=== PATIENT | female | born 1965 | race Caucasian/White ===

== ENCOUNTER 2020-08-06 08:02 | Inpatient (IN) | payer OTHER ==
[~2020-08-06] VITALS: Ht 170.2 cm; Wt 91.2 kg
[~2020-08-06 08:02] MED LIST: CEFUROXIME500 MG PO; HYDROCODON-ACE1 EAC4 PO; ZOFRAN4 MG PO
[2020-08-06 08:32] LABS: HEMOGLOBIN 14.7 gm/dl (12.3-15.3); RED BLOOD COUNT 4.81 M/UL (4.00-5.10); WHITE BLOOD COUNT 12.7 K/UL (4.5-11.0)
[2020-08-06 13:14] LABS: BUN/CREATININE RATIO 22 (0-10)
[2020-08-06] MEDS ORDERED: NADOLOL20 MG PO (16:31)
[2020-08-06] MEDS ORDERED: DOXEPIN HCL100 MG PO (16:33)
[2020-08-06] MEDS ORDERED: TRAMADOL HCL50 MG PO (16:35)
[2020-08-06] MEDS ORDERED: TIZANIDINE HCL4 MG PO (16:37)
[2020-08-06] MEDS ORDERED: PAROXETINE HCL30 MG PO (16:39)
[2020-08-06] MEDS ORDERED: HYDROXYZINE HCL25 MG PO (16:43)
[2020-08-07 05:38] LABS: HEMOGLOBIN 13.2 gm/dl (12.3-15.3); RED BLOOD COUNT 4.33 M/UL (4.00-5.10)
[2020-08-07 05:39] LABS: WHITE BLOOD COUNT 7.8 K/UL (4.5-11.0)
[2020-08-07 06:34] LABS: BUN/CREATININE RATIO 26 (0-10)
--- NOTE | 2020-08-07 21:41 | NUR ---
Updated pt daughter, Farida, via phone. all questions answered.
[2020-08-08 05:08] LABS: HEMOGLOBIN 14.1 gm/dl (12.3-15.3); RED BLOOD COUNT 4.66 M/UL (4.00-5.10)
[2020-08-08 05:36] LABS: BUN/CREATININE RATIO 25 (0-10)
[2020-08-08 05:53] LABS: WHITE BLOOD COUNT 3.6 K/UL (4.5-11.0)
[2020-08-09 03:14] LABS: HEMOGLOBIN 14.5 gm/dl (12.3-15.3); RED BLOOD COUNT 4.79 M/UL (4.00-5.10)
[2020-08-09 03:16] LABS: WHITE BLOOD COUNT 6.2 K/UL (4.5-11.0)
[2020-08-09 03:50] LABS: BUN/CREATININE RATIO 37 (0-10)
[2020-08-10 16:15] LABS: ORGANISM ID Not indicated. (.); SPECIMEN SOURCE Urine (.); STREPTOCOCCUS PNEUMONIAE AG Negative (Negative)
== END 2020-08-09 16:53 | disposition home or self-care (01) | DRG 917 ==
LOC: ER1 08:02 → CDU 12:21 → PROG CARE 12:21 → CCU 12:21 → MED SURG 4 14:33 → CCU 15:59 → PROG CARE 08-08 14:45
PROVIDERS: Internal Medicine Pulmonary Disease; Physician Assistant; ADMIT Internal Medicine Infectious Disease
PROC: 8E0ZXY6 Isolation (ICD-10-PCS; principal; 2020-08-06)
DX: T40.421A Poisoning by tramadol, accidental (unintentional), initial encounter (principal); U07.1 COVID-19; G92 Toxic encephalopathy; J96.01 Acute respiratory failure with hypoxia; J96.02 Acute respiratory failure with hypercapnia; N17.9 Acute kidney failure, unspecified; E11.649 Type 2 diabetes mellitus with hypoglycemia without coma; E87.5 Hyperkalemia; F31.9 Bipolar disorder, unspecified; K74.60 Unspecified cirrhosis of liver; E11.42 Type 2 diabetes mellitus with diabetic polyneuropathy; E86.0 Dehydration; G89.4 Chronic pain syndrome; T40.2X1A Poisoning by other opioids, accidental (unintentional), initial encounter; R74.01 Elevation of levels of liver transaminase levels; K75.81 Nonalcoholic steatohepatitis (NASH); Z90.710 Acquired absence of both cervix and uterus; Y92.89 Other specified places as the place of occurrence of the external cause; Z79.4 Long term (current) use of insulin
CPT/HCPCS: ECHO; 0240U; 36415; 36600; 70450; 71045; 71275; 80048; 80053; 80076; 80307; 81001; 82140; 82550; 82553; 82728; 82803; 82962; 83036; 83605; 83615; 83735; 83874; 83880; 84100; 84443; 84484; 85025; 85379; 85384; 85610; 85730; 86140; 87081; 87278; 87899; 93306; 93970; 94640; 94660; 94664; 94760; 96374; 96375; 99285; C9113; G0480; J0610; J1100; J1650; J2310; J2543; Q9967; U0003

== ENCOUNTER → 2021-04-03 | Outpatient (CLI) | payer OTHER ==
[~2021-04-03] MED LIST changes: +DOXEPIN HCL100 MG PO; +HYDROXYZINE HCL25 MG PO; +NADOLOL20 MG PO; +PAROXETINE HCL30 MG PO; +TIZANIDINE HCL4 MG PO; +TRAMADOL HCL50 MG PO
== END ==
LOC: KOH-I 11:11
DX: R05.9 Cough, unspecified (principal); R91.8 Other nonspecific abnormal finding of lung field
CPT/HCPCS: 71046

== ENCOUNTER 2021-06-25 12:51 | Emergency (ER) | payer OTHER ==
[2021-06-25] MEDS ORDERED: CYCLOBENZAPRINE10 MG PO (15:58)
[2021-06-25] MEDS ORDERED: IBUPROFEN600 MG PO (15:59)
== END 2021-06-25 17:00 | disposition home or self-care (01) ==
LOC: ER1 12:51
DX: M54.50 Low back pain, unspecified (principal); M25.552 Pain in left hip; E11.9 Type 2 diabetes mellitus without complications; I10 Essential (primary) hypertension; Z88.6 Allergy status to analgesic agent; W06.XXXA Fall from bed, initial encounter; Y92.009 Unspecified place in unspecified non-institutional (private) residence as the place of occurrence of the external cause
CPT/HCPCS: 72131; 72192; 73502; 99284

== ENCOUNTER → 2021-09-08 | Outpatient (CLI) | payer OTHER ==
[~2021-09-08] MED LIST changes: +CYCLOBENZAPRINE10 MG PO; +IBUPROFEN600 MG PO
== END ==
LOC: LAB 13:21
DX: M79.7 Fibromyalgia (principal); K75.81 Nonalcoholic steatohepatitis (NASH); R11.0 Nausea; Z76.0 Encounter for issue of repeat prescription
CPT/HCPCS: 36415; 82140

== ENCOUNTER 2021-09-15 21:25 | Emergency (ER) | payer OTHER ==
[2021-09-16 00:19] LABS: HEMOGLOBIN 15.6 gm/dl (12.3-15.3); RED BLOOD COUNT 5.05 M/UL (4.00-5.10); WHITE BLOOD COUNT 10.4 K/UL (4.5-11.0)
[2021-09-16 00:35] LABS: BUN/CREATININE RATIO 28 (0-10)
[2021-09-16] MEDS ORDERED: ZOFRAN 4 MG TAB4 MG PO (05:47)
[2021-09-16] MEDS ORDERED: PHENERGAN 12.12.5 MG PR (05:47)
== END 2021-09-16 06:04 | disposition home or self-care (01) ==
LOC: ER1 21:25
PROVIDERS: Emergency Medicine
DX: R11.2 Nausea with vomiting, unspecified (principal); I10 Essential (primary) hypertension; R30.0 Dysuria
CPT/HCPCS: 70450; 80053; 81001; 82962; 83690; 85025; 87077; 87086; 87186; 96374; 96375; 96376; 99284; J0360; J2405; J2550